=== PATIENT | male | born 1955 | race Caucasian/White ===

== ENCOUNTER → 2016-11-17 | Outpatient (CLI) | payer OTHER ==
[~2016-11-17] MED LIST: AMLODIPINE BESYL5 MG PO; NORVASC2.5 MG PO; OMEPRAZOLE20 MG PO; PROCHLORPERAZIN10 MG PO
== END | disposition home or self-care (01) ==
LOC: EKG 10:00
DX: Z01.810 Encounter for preprocedural cardiovascular examination (principal); C15.9 Malignant neoplasm of esophagus, unspecified; J98.01 Acute bronchospasm
CPT/HCPCS: 93306; 94060; 94726; 94729